=== PATIENT | female | born 1960 ===

== ENCOUNTER 2017-05-03 05:14 | Inpatient (IN) | payer OTHER ==
[2017-05-03] VITALS (16 sets, daily range): BP systolic 116–161; BP diastolic 59–100
[~2017-05-03] VITALS: Ht 154.9 cm; Wt 59.4 kg
[2017-05-03] MEDS ORDERED: ATORVASTATIN CA20 MG ORAL (06:09)
[2017-05-03] MEDS ORDERED: LISINOPRIL-HCT1 EACH ORAL (06:09)
[2017-05-03] MEDS ORDERED: TRAMADOL HCL50 MG ORAL (06:09)
[2017-05-03] MEDS ORDERED: MORPHINE IR15 MG ORAL (06:09)
[2017-05-03] MEDS ORDERED: OXYCODONE HCL20 M1 ORAL (06:10)
[2017-05-03] MEDS ORDERED: OMEPRAZOLE20 M2 ORAL (06:11)
[2017-05-03] MEDS ORDERED: LR 1000ml 1,000 ML IVLG SCH (06:21)
[2017-05-03] MEDS ORDERED: fentaNYL 100 mcg/2 mL IV PRN (06:30)
[2017-05-03] MEDS ORDERED: Midazolam 2mg/2ml Inj IVP PRN (06:30)
[2017-05-03] MEDS ORDERED: Ketorolac 30mg Inj IV PRN ×2 (06:30)
[2017-05-03] MEDS ORDERED: Acetaminophen (Non formulary) 100 ML IV ONE (06:30)
[2017-05-03] MEDS ORDERED: Norco 5mg/325mg tab ORAL PRN (06:30)
[2017-05-03] MEDS ORDERED: DiphenhydrAMINE 50mg/ml Inj IVP PRN (06:30)
[2017-05-03] MEDS ORDERED: oxyCODONE HCL/Acetaminophen 5/325mg ORAL PRN (06:30)
[2017-05-03] MEDS ORDERED: HYDROcodone/Acetamin 7.5/325 tab ORAL PRN (06:30)
[2017-05-03] MEDS ORDERED: LORazepam Inj 2mg/ml 1ml IV PRN (06:30)
[2017-05-03] MEDS ORDERED: Atropine Inj 1mg/10ml Syr IV PRN (06:30)
[2017-05-03] MEDS ORDERED: Labetalol 5mg/ml 20ml vial IV PRN (06:30)
[2017-05-03] MEDS ORDERED: Thrombin 5000 units TOPIC ONE (06:32)
[2017-05-03] MEDS ORDERED: Lidocaine 1% 10mg/ml/EPI 0.01mg/ml 50ml INJ ONE (06:33)
[2017-05-03] MEDS ORDERED: Lidocaine 1% Plain 30 ml INJ ONE ×2 (06:33→07:00)
[2017-05-03] MEDS ORDERED: Surgicel 4in x 8in TOPIC ONE (06:33)
[2017-05-03] MEDS ORDERED: Vancomycin 1gm inj IVPB ONE (06:34)
[2017-05-03] MEDS ORDERED: Bacitracin 50000 Units Vial ONE (06:34)
[2017-05-03] MEDS ORDERED: Ropivacaine 5mg/ml Vial 30ml INJ ONE (06:34)
[2017-05-03] MEDS ORDERED: Dexamethasone 20mg/5ml ONE (06:37)
[2017-05-03] MEDS ORDERED: Albuterol ud Inhalation HHN PRN (06:45)
[2017-05-03] MEDS ORDERED: Dexamethasone 20mg/5ml IVP ONE (06:45)
[2017-05-03] MEDS ORDERED: ceFAZolin 1gm/50ml Premix 50 ML IV ONE (06:45)
[2017-05-03] MEDS ORDERED: Chloraseptic Spray 20mL Bottle ORAL PRN (06:45)
--- NOTE | 2017-05-03 06:57 | Anethesia Preoperative Eval ---
Anesthesia Pre-op PMH/ROS General Date of Evaluation: May 03, 2017 Time of Evaluation: 07:11 Anesthesiologist: Satinder ASA Score: ASA 3 Mallampati Score Class I : Soft palate, uvula, fauces, pillars visible Class II: Soft palate, uvula, fauces visible Class III: Soft palate, base of uvula visible Class IV: Only hard plate visible Mallampati Classification: Class II Surgeon: Demario Diagnosis: Back Pain Surgical Procedure: PSF L5-S1 Pedicle Screw Anesthesia History: none Family History: no anesthesia problems Allergies: Coded Allergies: No Known Allergies (Unverified , 05/03/17) Medications: see eMAR Past Medical History Cardiovascular: Reports: HTN, other - HL Pulmonary: Reports: asthma Gastrointestinal/Genitourinary: Reports: GERD Neurologic/Psychiatric: Reports: depression/anxiety Anesthesia Pre-op Phys. Exam Physician Exam Last Vital Signs Date Time Temp Pulse Resp B/P (MAP) Pulse Ox O2 Delivery O2 Flow Rate FiO2 05/03/17 06:29 98.1 55 20 116/59 96 Room Air 98.1 Constitutional: NAD Neurologic: CN 2-12 intact Cardiovascular: RRR Respiratory: CTA Gastrointestinal: S/NT/ND Airway Exam Mallampati Score: Class II MO: full ROM: limited Teeth: missing Anesthesia Pre-op A/P Risk Assessment & Plan Assessment: ASA 3 Plan: GA, BIS, GlideScope Go Status Change Before Surgery: No Pre-Antibiotics Dru Grams Ancef IV Given Within 1 Hr of Incision: Yes Time Given: 07:32 Jessee Rajan MD May 03, 2017 06:57
--- NOTE | 2017-05-03 06:58 | Immediate Post-Op Evaluation ---
Immediate Post-Op Evalulation Immediate Post-Op Evalulation Procedure: PSF L5-S1 Pedicle Screw Date of Evaluation: May 03, 2017 Time of Evaluation: 10:30 IV Fluids: 1000 LR Blood Products: 0 Estimated Blood Loss: 25 Urinary Output: 0 Blood Pressure Systolic: 155 Blood Pressure Diastolic: 103 Pulse Rate: 77 Respiratory Rate: 16 O2 Sat by Pulse Oximetry: 100 Temperature (Fahrenheit): 97.3 Pain Score (1-10): 3 Nausea: No Vomiting: No Complications 0 Patient Status: awake, reacts, patent, extubated, none Hydration Status: adequate Dru Grams Ancef IV Given Within 1 Hr of Incision: Yes Time Given: 07:32 Jessee Rajan MD May 03, 2017 06:58
[2017-05-03] MEDS ORDERED: fentaNYL 100 mcg/2 mL IV ONE (07:00)
[2017-05-03] MEDS ORDERED: LR 1000ml ONE (07:00)
[2017-05-03] MEDS ORDERED: Zemuron 50mg/5ml Inj IV ONE (07:00)
[2017-05-03] MEDS ORDERED: Glycopyrrolate 0.2mg/ml 1ml Vial ONE (07:00)
[2017-05-03] MEDS ORDERED: Lidocaine 1% MPF 10mg/ml 5ml ONE (07:00)
[2017-05-03] MEDS ORDERED: Propofol 1,000mg/ 100ml btl IV ONE (07:00)
[2017-05-03] MEDS ORDERED: Neostigmine 1mg/ml 10ml Inj ONE (07:00)
[2017-05-03] MEDS ORDERED: Sterile Water Irrig 1000ml IRRIG ONE (07:00)
[2017-05-03] MEDS ORDERED: Dexamethasone 4mg/ml vial ONE (07:00)
[2017-05-03] MEDS ORDERED: Sodium Chloride 10ml vial INJ ONE (07:00)
[2017-05-03] MEDS ORDERED: NS Irrig 1000ml ONE (07:00)
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
--- NOTE | 2017-05-03 10:01 | Brief Operative Note ---
Immediate Post Operative Note Operative Note Pre-op Diagnosis: Post Trauma severe backpain. Failed all conservative trials / modalities Procedure: Pedicle Screw L5-S1 SSEP High Power dissection Local Xray Post-op Diagnosis: same as pre-op Findings: consistent w/pre-op dx studies Surgeon: Demario Ph.D., M.D. Nurse First Aid: Sole RIVERA Anesthesiologist: Satinder Anesthesia: general Specimen: none Complications: none Condition: stable Fluids: anesthesia Estimated Blood Loss: minimal Drains: none Implant(s) used?: Yes LARRY COLUNGA May 03, 2017 10:00
[2017-05-03] MEDS ORDERED: Naloxone 0.4mg/ml Inj IVP PRN (10:15)
[2017-05-03] MEDS: Hydromorphone 0.5mg/0.5ml inj IVP PRN ×3 (10:31→11:14)
--- NOTE | 2017-05-03 12:05 | Diagnostic Imaging Report ---
Indication: Left lower extremity pain, intraoperative images Technique: Digital intraoperative images Comparison: none Findings: Intraoperative images demonstrate initially a surgical tool projected posterior to what is presumably the L5 vertebral body. Subsequent images document posterior surgical fusion of L5 and S1 Impression: Intraoperative imaging, as described
[2017-05-03] MEDS: D5 1/2NS 1,000 ML IV SCH ×2 (12:50→21:25)
[2017-05-03] MEDS ORDERED: Dronabinol 2.5mg Cap ORAL SCH ×2 (13:00→20:00)
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
[2017-05-03] MEDS: ceFAZolin sod 1 GM in D5W 55 ML IV SCH ×2 (15:59→22:29)
[2017-05-03] MEDS: oxyCODONE 5mg IR tab ORAL PRN (17:40)
--- NOTE | 2017-05-03 17:47 | Operative Note - Dictated ---
DATE OF OPERATION: 05/03/2017 SURGEON: Tarun Hanks M.D. EMPLOYMENT RECRUITER: MIGUEL Oscar. ANESTHESIA: Dr. Rajan, general with intubation. ESTIMATED BLOOD LOSS: Minimal. DRAINS: None. COMPLICATIONS: None. POSTOPERATIVE CONDITION: Good/stable. ADMITTING/PREOPERATIVE DIAGNOSIS: Severe posttraumatic back pain. POSTOPERATIVE DIAGNOSIS: Severe posttraumatic back pain. OPERATIVE PROCEDURE: Trial pedicle screw instrumentation, L5-S1, with interconnecting rods-immobilization. Local anesthetic applied by surgeon. Intraoperative fluoroscopy interpreted by surgeon. High-powered magnification dissection. DESCRIPTION OF PROCEDURE: The patient was brought to the operating room and in the supine position, general anesthesia with intubation was induced. IV antibiotics and IV Decadron were administered 30 minutes prior to incision time. Lumbodorsal spine was sterilely prepped. Spinal needle was placed percutaneously under sterile conditions demonstrating the correct level for incision placement. Needle markers removed. Back re-sterilely prepped and draped free in usual sterile fashion. A longitudinal incision was sharply carried through dermis and epidermis over the involved intervals. Electrocautery dissection was carried through the subcutaneous tissue to the midline lumbodorsal fascia with subperiosteal dissection in the right, left, and midline over the respective intervals. Pedicle screw instrumentation was undertaken at bilateral S1, bilateral L5 with sequential probing of the pedicle, tapping, determination of physical integrity of the wall, ball tip probe, screw insertion followed with electrical screw stimulation negative at all levels. No EMG activities at any time during screw insertion. Interconnecting rods locked into position, torqued appropriately. Wound irrigated with antibiotic-containing saline. A 1 g of vancomycin powder applied deep to the lumbodorsal fascia. Lumbodorsal fascia reapproximated with Vicryl suture material. Subcutaneous tissue reapproximated in multiple layers. Dermis and epidermis reapproximated with a subcuticular closure followed with transverse surgical strips and Dermabond. After the Dermabond was dry, sterile bandage was applied and maintained in place with tape. Prior to Dermabond and surgical strips application, local anesthetic 1% lidocaine with epinephrine was instilled in bilateral lateral aspects of the incision as local anesthetic. The patient was awakened, extubated in the operating room, and transported to postoperative recovery in good stable condition. Tarun Hanks M.D. DR: ROB JOB#: [id number] CC:
[2017-05-03] MEDS: MS Contin 15mg tab ORAL SCH ×3 (18:00→22:14)
[2017-05-03] MEDS: Docusate 100mg cap ORAL SCH (18:17)
[2017-05-03] MEDS: Dronabinol 2.5mg Cap ORAL SCH (22:29)
[2017-05-04 01:00] VITALS: BP 103/90
[2017-05-04 04:00] VITALS: BP 112/71
[2017-05-04] MEDS: D5 1/2NS 1,000 ML IV SCH (04:34)
[2017-05-04] MEDS: ceFAZolin sod 1 GM in D5W 55 ML IV SCH (06:26)
[2017-05-04] MEDS: Dronabinol 2.5mg Cap ORAL SCH (06:26)
--- NOTE | 2017-05-04 06:45 | 48 Hour Post Anesthesia Eval ---
Post Anesthesia Evaluation Procedure: PSF L5-S1 Pedicle Screw Date of Evaluation: May 04, 2017 Time of Evaluation: 06:30 Blood Pressure Systolic: 112 0: 71 Pulse Rate: 68 Respiratory Rate: 18 Temperature (Fahrenheit): 97.9 O2 Sat by Pulse Oximetry: 94 Airway: patent Nausea: No Vomiting: No Pain Intensity: 2 Hydration Status: adequate Cardiopulmonary Status: at baseline Mental Status/LOC: patient returned to baseline Post-Anesthesia Complications: 0 Follow-up care needed: N/A - further care as per primary team ANIKA DUARTE M.D. May 04, 2017 06:45
[2017-05-04 08:00] VITALS: BP 119/75
--- NOTE | 2017-05-04 08:30 | Progress Note ---
DATE: 05/04/2017 ACUTE PAIN MANAGEMENT PHYSICIAN PROGRESS NOTE MEDICATIONS: Medication administration record reviewed. Medications include Colace, Protonix, MS Contin, Ancef, Marinol. P.r.n. medications include Fioricet, Proventil, Benadryl, Soma, Catapres, Chloraseptic spray, Dilaudid, Zofran, oxycodone, Mylanta, Phenergan, Narcan. LABORATORY STUDIES: No interval laboratory studies. VITAL SIGNS: Within normal limits. Afebrile, pulse 68, respirations 18, pulse oximetry 94%. I spent over 60 minutes in consultation today. I saw the patient at the bedside after discussion with the nurse, MOISES Estrada. I discussed the case with the day nurse RN, Aurelia. I discussed the case with the surgeon, Dr. Tarun Hanks in-detail. The patient has been complaining of severe postoperative pain. After receiving multiple bolus doses of Dilaudid and Marinol yesterday, she still stated that her pain was inadequately controlled. I went ahead and spoke with the hospital pharmacist, Catrina, and added MS Contin 30 mg q.12 hours to help with baseline analgesia. The additional dosing has been more effective. I saw the patient this morning. She has been able to ambulate in and out of bed to the restroom. She is tolerating food without nausea. She shows no signs of oversedation. I have instructed the nurse to continue with serially dosing of narcotics to help with her pain control. The patient has an ample supply of extended-release morphine, and oxycodone as well as her medical marijuana at home, which she will continue. The patient's daughter will picker tender helper the patient later this morning and drive her home. The patient will follow up with Dr. Hanks in the outpatient surgical clinic in approximately 1 week. The patient is afebrile and I encouraged aggressive use of incentive spirometer to help with pulmonary toilet. I did encourage the patient to aggressively ambulate for DVT prophylaxis as well as to aid her surgical recovery. The patient understood these instructions and agreed to comply. I agree with discharge trial home at this time later today. The wound dressing appears clean and dry. Giovany Fernie, M.D. DR: Kandis JOB#: [id number] CC:
[2017-05-04] MEDS: MS Contin 15mg tab ORAL SCH (09:09)
[2017-05-04] MEDS: Docusate 100mg cap ORAL SCH (09:09)
[2017-05-04] MEDS: oxyCODONE 5mg IR tab ORAL PRN (10:08)
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
== END 2017-05-04 11:20 | disposition home or self-care (01) | DRG 516 ==
LOC: SDSOVERFLO 05:14 → 3E 11:52
PROC: 0SH304Z Insertion of Internal Fixation Device into Lumbosacral Joint, Open Approach (ICD-10-PCS; principal; 2017-05-03 07:00)
DX: M51.27 Other intervertebral disc displacement, lumbosacral region (principal); F11.20 Opioid dependence, uncomplicated; I10 Essential (primary) hypertension; E78.5 Hyperlipidemia, unspecified; J45.909 Unspecified asthma, uncomplicated; G89.18 Other acute postprocedural pain
CPT/HCPCS: 36415; 72020; 76001; 86850; 86900; 86901; 87081; 94003; 94150; J2250; J2405; J2710

== ENCOUNTER 2017-06-27 05:37 | Inpatient (IN) | payer OTHER ==
[~2017-06-27] VITALS: Ht 154.9 cm; Wt 59.4 kg
[2017-06-27] VITALS (16 sets, daily range): BP systolic 107–163; BP diastolic 63–107
[~2017-06-27 05:37] MED LIST: ATORVASTATIN CA20 MG ORAL; LISINOPRIL-HCT1 EACH ORAL; MORPHINE IR15 MG ORAL; OMEPRAZOLE20 M2 ORAL; OXYCODONE HCL20 M1 ORAL; TRAMADOL HCL50 MG ORAL
[2017-06-27] MEDS ORDERED: Labetalol 5mg/ml 20ml vial IV PRN ×2 (06:00→14:15)
[2017-06-27] MEDS ORDERED: Ketorolac 30mg Inj IV PRN ×4 (06:00→14:00)
[2017-06-27] MEDS ORDERED: LR 1000ml 1,000 ML IVLG SCH (06:00)
[2017-06-27] MEDS ORDERED: LORazepam Inj 2mg/ml 1ml IV PRN (06:00)
[2017-06-27] MEDS ORDERED: DiphenhydrAMINE 50mg/ml Inj IVP PRN ×2 (06:00→14:15)
[2017-06-27] MEDS ORDERED: oxyCODONE HCL/Acetaminophen 5/325mg ORAL PRN ×2 (06:00→14:15)
[2017-06-27] MEDS ORDERED: Norco 5mg/325mg tab ORAL PRN ×2 (06:00→14:00)
[2017-06-27] MEDS ORDERED: HYDROcodone/Acetamin 7.5/325 tab ORAL PRN ×2 (06:00→14:00)
[2017-06-27] MEDS ORDERED: Midazolam 2mg/2ml Inj IVP PRN ×2 (06:00→14:00)
[2017-06-27] MEDS ORDERED: Atropine Inj 1mg/10ml Syr IV PRN ×2 (06:00→14:15)
[2017-06-27] MEDS ORDERED: fentaNYL 100 mcg/2 mL IV PRN ×2 (06:00→14:00)
--- NOTE | 2017-06-27 06:02 | Immediate Post-Op Evaluation ---
Immediate Post-Op Evalulation Immediate Post-Op Evalulation Procedure: Post Screw Removal L5-S1, ALIF, PSF Date of Evaluation: Jun 27, 2017 Time of Evaluation: 13:58 IV Fluids: 1300 LR Blood Products: 0 Estimated Blood Loss: 100 Urinary Output: 200 Blood Pressure Systolic: 156 Blood Pressure Diastolic: 97 Pulse Rate: 67 Respiratory Rate: 16 O2 Sat by Pulse Oximetry: 100 Temperature (Fahrenheit): 97.6 Pain Score (1-10): 3 Nausea: No Vomiting: No Complications 0 Patient Status: awake, reacts, patent, extubated, none Hydration Status: adequate Dru Grams Ancef IV Given Within 1 Hr of Incision: Yes Time Given: 07:38 Jessee Rajan MD Jun 27, 2017 06:02
[2017-06-27] MEDS ORDERED: Zemuron 50mg/5ml Inj IV ONE (06:10)
[2017-06-27] MEDS ORDERED: fentaNYL 100 mcg/2 mL IV ONE ×3 (06:14→11:28)
[2017-06-27] MEDS ORDERED: Midazolam 2mg/2ml Inj ONE (06:24)
[2017-06-27] MEDS ORDERED: Vancomycin 1gm inj IVPB ONE ×2 (06:29→09:28)
[2017-06-27] MEDS ORDERED: Heparin 5000 units/ml inj ONE (06:30)
[2017-06-27] MEDS ORDERED: Thrombin 5000 units TOPIC ONE ×2 (06:30→09:29)
[2017-06-27] MEDS ORDERED: Lidocaine 1% 10mg/ml/Epi 0.005mg/ml 30ml vial INJ ONE (06:31)
[2017-06-27] MEDS ORDERED: Bacitracin 50000 Units Vial ONE ×2 (06:31→09:29)
[2017-06-27] MEDS ORDERED: Ropivacaine 5mg/ml Vial 30ml INJ ONE (06:31)
[2017-06-27] MEDS ORDERED: Lidocaine 1% MPF 10mg/ml 5ml ONE (06:33)
[2017-06-27] MEDS ORDERED: Sodium Chloride 10ml vial INJ ONE ×3 (06:52→11:20)
[2017-06-27] MEDS ORDERED: Dexamethasone 20mg/5ml IVP ONE (07:00)
[2017-06-27] MEDS ORDERED: ceFAZolin sod 1 GM in D5W 55 ML IVPB ONE (07:00)
[2017-06-27] MEDS ORDERED: Acetaminophen (Non formulary) 100 ML IV ONE (07:00)
--- NOTE | 2017-06-27 07:12 | Pre-Procedure Note/Attestation ---
Pre-Procedure Note/Attestation Complete Prior to Procedure Planned Procedure: not applicable Procedure Narrative: Posterior removal rods L5, S1 Anterior L5-S1 interbody reconstruction, correction deformity, fusion, internal fixation Posterior possible removal and replacement pedicle scows Posterior L5-S1 fusion Indications for Procedure Pre-Operative Diagnosis: Post trauma back pain Attestation I attest that I discussed the nature of the procedure; its benefits; risks and complications; and alternatives (and the risks and benefits of such alternatives ), prior to the procedure, with the patient (or the patient's legal medical center representative). I attest that, if there was a reasonable possibility of needing a blood transfusion, the patient (or the patient's legal medical center representative) was given the [place] [facility] of Health Services standardized written summary, pursuant to the Aly [place] Blood Safety Act ([place] Health and Safety Code # 1645, as amended). I attest that I re-evaluated the patient just prior to the surgery and that there has been no change in the patient's H&P, except as documented below: LARRY COLUNGA Jun 27, 2017 07:12
--- NOTE | 2017-06-27 07:43 | Anethesia Preoperative Eval ---
Anesthesia Pre-op PMH/ROS General Date of Evaluation: Jun 27, 2017 Time of Evaluation: 07:06 Anesthesiologist: Emma ASA Score: ASA 3 Mallampati Score Class I : Soft palate, uvula, fauces, pillars visible Class II: Soft palate, uvula, fauces visible Class III: Soft palate, base of uvula visible Class IV: Only hard plate visible Mallampati Classification: Class II Surgeon: Demario Diagnosis: Back Pain Surgical Procedure: Post Screw Removal L5-S1, ALIF, PSF Anesthesia History: none Family History: no anesthesia problems Allergies: Coded Allergies: No Known Allergies (Unverified , 06/27/17) Medications: see eMAR Past Medical History Cardiovascular: Reports: HTN, other - HL Pulmonary: Reports: asthma Gastrointestinal/Genitourinary: Reports: GERD, other - Smoker Neurologic/Psychiatric: Reports: depression/anxiety PMH Narrative: Smoker PSxH Narrative: ALIF L5-S1. PSF Anesthesia Pre-op Phys. Exam Physician Exam Last Vital Signs Date Time Temp Pulse Resp B/P (MAP) Pulse Ox O2 Delivery O2 Flow Rate FiO2 06/27/17 06:14 97.7 60 16 107/63 99 Room Air 97.7 Constitutional: NAD Neurologic: CN 2-12 intact Cardiovascular: RRR Respiratory: CTA Gastrointestinal: S/NT/ND Airway Exam Mallampati Classification ASA 3 Mallampati Score: Class II MO: full ROM: full Teeth: missing Anesthesia Pre-op A/P Risk Assessment & Plan Assessment: ASA 3 Plan: GA, BIS, GlideScope Go Status Change Before Surgery: No Pre-Antibiotics Dru Grams Ancef IV Given Within 1 Hr of Incision: Yes Time Given: 07:38 Jessee Rajan MD Jun 27, 2017 07:43
[2017-06-27] MEDS ORDERED: Lidocaine 1% Plain 30 ml INJ ONE ×2 (07:59→09:23)
[2017-06-27] MEDS ORDERED: Ketamine 500mg Inj ONE (11:19)
[2017-06-27] MEDS ORDERED: Propofol 200mg/20ml IV ONE (11:37)
--- NOTE | 2017-06-27 13:53 | Brief Operative Note ---
Immediate Post Operative Note Operative Note Pre-op Diagnosis: Post trauma back pain Procedure: Posterior Pedicle Screw dariusz removal bilateral. Operation through scar tissue. Anterior: L5-S1: correction deformity, interbody reconstruction / fusion / BMP/ internal fixation. Posterior Pedicle Scrw removal, replacement, facet fusion, dariusz placement Local High Power Xray SSEP Post-op Diagnosis: same Post-op Diagnosis: same as pre-op Findings: consistent w/pre-op dx studies Surgeon: Demario. Additional Surgeons: Jaguar Khoury Anesthesiologist: Satinder FRANCISCO Anesthesia: general Specimen: yes Complications: none Condition: stable Fluids: anesthesia Estimated Blood Loss: minimal Drains: none Implant(s) used?: Yes LARRY COLUNGA Jun 27, 2017 13:53
[2017-06-27] MEDS: LORazepam Inj 2mg/ml 1ml IV PRN ×2 (14:33→15:34)
[2017-06-27] MEDS ORDERED: Dronabinol 2.5mg Cap ORAL SCH (15:15)
[2017-06-27] MEDS ORDERED: Chloraseptic Spray 20mL Bottle ORAL ONE (15:32)
[2017-06-27] MEDS ORDERED: PCA Morphine 1mg/ml 30 ML IV PRN (15:45)
[2017-06-27] MEDS ORDERED: Chloraseptic Spray 20mL Bottle ORAL PRN (16:00)
[2017-06-27] MEDS ORDERED: PCA Morphine 1mg/ml 30 ML IV ONE (16:00)
[2017-06-27] MEDS ORDERED: Rate Change PCA 1 Each MISC PRN (16:00)
[2017-06-27] MEDS: PCA Morphine 30mg/30ml IV SCH (16:06)
[2017-06-27] MEDS ORDERED: D5 1/2NS 1,000 ML IV SCH (17:00)
[2017-06-27] MEDS ORDERED: PCA Education Pamphlet MISC ONE (17:00)
[2017-06-27] MEDS: ceFAZolin sod 1 GM in D5W 110 ML IV SCH (17:33)
[2017-06-27] MEDS: Albuterol/Ipratropium 3ml neb HHN SCH (19:00)
[2017-06-27] MEDS: MS Contin 15mg tab ORAL SCH (19:00)
[2017-06-27] MEDS: PCA shift volume MISC SCH (19:00)
--- NOTE | 2017-06-27 20:50 | Cardiology Progress Note ---
Assessment/Plan Assessment/Plan tachy leiklyrelated to pain ekg renzo have ivf bolus cbc now and in am venous duplex [id number] Objective Last 24 Hour Vital Signs Date Time Temp Pulse Resp B/P (MAP) Pulse Ox O2 Delivery O2 Flow Rate FiO2 06/27/17 20:10 97.4 06/27/17 20:10 97.4 06/27/17 20:06 Nasal Cannula 2.0 28 06/27/17 20:05 Nasal Cannula 06/27/17 20:05 99 Nasal Cannula 2.0 28 06/27/17 20:04 134 24 99 Nasal Cannula 2.0 28 06/27/17 20:03 134 24 Nasal Cannula 2.0 28 06/27/17 19:00 97.4 06/27/17 17:52 18 06/27/17 17:30 97.4 97 18 140/88 100 Nasal Cannula 3.0 97.4 06/27/17 17:22 18 06/27/17 16:52 18 06/27/17 16:37 18 06/27/17 16:36 97.8 06/27/17 16:25 97.4 92 18 134/88 100 Nasal Cannula 3.0 97.4 06/27/17 16:22 16 06/27/17 16:15 97.8 89 15 148/83 98 Nasal Cannula 3.0 97.8 06/27/17 16:07 18 06/27/17 16:06 97.7 06/27/17 16:00 85 16 139/83 100 Nasal Cannula 3.0 06/27/17 15:45 86 17 142/91 99 Nasal Cannula 3.0 06/27/17 15:30 88 20 136/86 100 Nasal Cannula 3.0 06/27/17 15:21 97.7 06/27/17 15:21 97.7 06/27/17 15:15 71 17 137/95 99 Nasal Cannula 3.0 06/27/17 15:06 97.3 06/27/17 15:00 77 18 152/99 96 Nasal Cannula 3.0 06/27/17 14:51 97.5 06/27/17 14:45 74 20 155/95 100 Nasal Cannula 3.0 06/27/17 14:37 158/107 06/27/17 14:30 78 15 155/98 98 Nasal Cannula 3.0 06/27/17 14:15 81 21 159/107 100 Simple Mask 6.0 06/27/17 14:00 82 18 154/100 100 Simple Mask 6.0 06/27/17 13:50 97.2 88 20 163/96 100 Simple Mask 6.0 97.2 06/27/17 13:47 97.7 60 16 156/97 100 Simple Mask 97.7 06/27/17 13:46 207.7 67 16 100 06/27/17 06:14 97.7 60 16 107/63 99 Room Air 97.7 Intake and Output 06/26/17 06/27/17 19:00 07:00 # Voids 1 JENNIFER DANIEL Jun 27, 2017 20:50
[2017-06-27] MEDS ORDERED: Sodium Chloride 500ML 550 ML IV ONE (21:00)
--- NOTE | 2017-06-27 21:15 | Operative Note - Dictated ---
DATE OF OPERATION: 06/27/2017 PRIMARY SURGEON: Tarun Hanks, Ph. D., M.D. ADDITIONAL SURGEON: Anterior, Dr. Montesinos, Vascular Surgery. MATERIAL HANDLER FLOORPERSON: Posterior, MIGUEL Cordova. ANESTHESIA: Dr. Rajan, general with intubation. ESTIMATED BLOOD LOSS: Less than 50 mL. COMPLICATIONS: None. POSTOPERATIVE CONDITION: Good/stable. PREOPERATIVE DIAGNOSIS: Posttraumatic back pain. POSTOPERATIVE DIAGNOSIS: Posttraumatic back pain. OPERATIVE PROCEDURE: Posterior operation through scar tissue removed interconnecting rods bilateral pedicles screws. Anterior interbody reconstruction fusion L5-S1 with correction deformity, placement bone morphogenic protein, internal fixation. Posterior, removal of pedicle screw instrumentation with implantation, new pedicle screw instrumentation, change in dimensions, interconnecting rods with fusion, bilateral facet fusion L5-S1. Local anesthetic applied by surgeon. Intraoperative fluoroscopy anterior, posterior, interpreted by surgeon, posterior vancomycin powder application. PROCEDURE IN DETAIL: The patient was brought to the operating room and in supine position general anesthesia intubation was induced. IV antibiotics, IV Decadron were administered 30 minutes prior to incision time. The patient was placed in the prone position. Lumbodorsal spine was sterilely prepped and draped free in usual sterile fashion. Utilizing the prior incision, sharp dissection was carried through scar tissue, dermis and epidermis. Electrocautery dissection was carried through the subcutaneous tissue to the level lumbodorsal fascia was incised right and left of midline. Dissection carried to the pedicle screw instrumentation bilaterally. Interconnecting rods tight. Removed. The wound reapproximated under sterile conditions with Vicryl suture material. Sterile bandage applied and maintained in place with . The patient carefully turned position in the prone position. All new instrumentation utilized. New operating table. Anterior exposure, please see separate dictation by Dr. Montesinos. L5-S1 interval was confirmed with AP and lateral radiographs with needle placed into the disc space. Severe collapse with spondylolisthesis noted prior to pedicle screw instrumentation/dariusz removal. Reduced with supine positioning. Correction deformity to lordosis. Interpositional grafting with lordotic AERO-L instrumentation internal fixation. Placement of bone morphogenic protein within the AERO-L for fusion. Alignment excellent. All dissection anterior and posterior under high-power magnification. Wound irrigated with antibiotic-containing saline. Closure, Dr. Montesinos. Please see separate dictation. Dr. Hanks assist. The patient was carefully turned from the supine to the prone position onto a new operating table. All new instrumentation into the room. All new sterile set up. The posterior bandage was removed in a sterile fashion. Posterior lumbar spine sterilely prepped and draped free in usual sterile fashion. Vicryl suture material removed. Wound irrigated with antibiotic-containing saline. Pedicle screw instrumentation removed in a sequential fashion with replacement with new pedicle screws increased by 1 millimeter in diameter. Excellent purchase. The patient is stable. SSEP monitoring stable at all times. Interconnecting rods locked into position with new rods utilized with appropriate dimensions. Rods placed after bilateral facet fusions performed. Wound irrigated with antibiotic-containing saline, vancomycin. FloSeal applied with minimal bleeding. This was followed with 1 gram of vancomycin powder deep to the lumbodorsal fascia. Lumbodorsal fascia reapproximated with Vicryl suture material. Subcutaneous tissue reapproximated. Running subcuticular closure. Transverse surgical strips followed with Dermabond. Once the Dermabond was solid, sterile bandage applied and maintained in place with tape. The patient was carefully turned from the prone to the supine position onto the transport bed where she was awakened and extubated in the operating room, and transported to postoperative recovery in good stable condition. Tarun Hanks M.D. DR: ROB JOB#: [id number] CC:
[2017-06-27] MEDS: Dronabinol 2.5mg Cap ORAL SCH (21:56)
[2017-06-27 22:04] LABS: BASOPHILS % (AUTO) 0.3 % (0.0-2.0); HEMATOCRIT 30.4 % (37.0-47.0); HEMOGLOBIN 10.5 G/DL (12.0-16.0); LYMPHOCYTES % (AUTO) 11.2 % (20.0-45.0); MEAN CORPUSCULAR VOLUME 87 FL (80-99); MONOCYTES % (AUTO) 7.1 % (1.0-10.0); NEUTROPHILS % (AUTO) 81.4 % (45.0-75.0); PLATELET COUNT 353 K/UL (150-450); RED BLOOD COUNT 3.49 M/UL (4.20-5.40); WHITE BLOOD COUNT 12.8 K/UL (4.8-10.8)
[2017-06-27 22:11] LABS: ANION GAP 5 mmol/L (5-15); BLOOD UREA NITROGEN 11 mg/dL (7-18); CARBON DIOXIDE 30 MMOL/L (21-32); CHLORIDE 102 MMOL/L (98-107); CREATININE 0.9 MG/DL (0.55-1.30); POTASSIUM 3.8 MMOL/L (3.5-5.1); SODIUM 136 MMOL/L (136-145)
[2017-06-27 22:16] LABS: ALANINE AMINOTRANSFERASE 18 U/L (12-78); ALBUMIN 2.9 G/DL (3.4-5.0); ALKALINE PHOSPHATASE 75 U/L (46-116); ASPARTATE AMINO TRANSFERASE 19 U/L (15-37); BILIRUBIN,TOTAL 0.5 MG/DL (0.2-1.0)
--- NOTE | 2017-06-27 22:30 | Operative Note - Dictated ---
DATE OF OPERATION: 06/27/2017 SURGEON: Jamal Montesinos M.D., Vascular Surgeon. SPINE SURGEON: Tarun Hanks M.D. PREOPERATIVE DIAGNOSIS: Degenerative disc disease. POSTOPERATIVE DIAGNOSIS: Degenerative disc disease. PROCEDURE PERFORMED: Anterior retroperitoneal exposure, L5-S1, vertebral interspace. INDICATIONS: The patient is a very pleasant woman who is seen in my office prior to surgery. She has a prior history of a section via transverse incision. No prior history of deep venous thrombosis or bleeding complications were described. She was made aware of the risks of surgery including vascular injury, possible need for blood transfusion, and deep venous thrombosis. DESCRIPTION OF FINDINGS: Her prior transverse incision was used. A left retroperitoneal approach was used. There was no peritoneal or ureteral violation. There was no vascular injury. Exposure of L5-S1 was obtained below the iliac bifurcation and confirmed using fluoroscopy. On completion, the peritoneum and ureter intact. The iliac vessels were intact. BLOOD LOSS: Less than 50 mL. COMPLICATIONS: None. DESCRIPTION OF PROCEDURE: The patient was taken to the operating room. General anesthesia was used. Intravenous antibiotics were given. The patient's abdomen was prepped and draped. Appropriate time-out procedures were taken. A transverse incision was made just above the pubic symphysis. Flaps were raised superiorly. The anterior abdominal fascia was incised longitudinally in the midline. A plane was identified posterior to the left rectus abdominis and developed posterolaterally towards the patient's left. The retroperitoneal space was bluntly entered below the arcuate line. The peritoneum and ureter were mobilized together towards the patient's right exposing the left common iliac artery and vein. Dissection was carried out on the undersurface of the left common iliac vein. The middle sacral artery and vein were ligated using bipolar electrocautery and divided, and this allowed us to expose the anterior surface of L5-S1. The Omni retractor was set in place. Fluoroscopy was used to confirm the appropriate level. Then, instrumentation was performed at L5-S1 and dictated separately. On completion, the peritoneum and ureter were intact. Iliac vessels were intact. The anterior fascia was closed using #1 PDS in a running fashion, and the skin and subcutaneous tissue were closed with 3-0 Vicryl and 4-0 Monocryl in running subcuticular closure technique. Jamal Montesinos M.D. DR: ASHLYN JOB#: [id number] CC: Tarun Hanks M.D.
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
[2017-06-27] MEDS: D5 1/2NS 1,000 ML IV SCH ×2 (23:06→23:08)
[2017-06-28] VITALS: BP 130/88
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
[2017-06-28] MEDS: Albuterol/Ipratropium 3ml neb HHN SCH ×3 (00:36→14:56)
[2017-06-28] MEDS: ceFAZolin sod 1 GM in D5W 110 ML IV SCH ×2 (00:37→08:40)
[2017-06-28] MEDS: D5 1/2NS 1,000 ML IV SCH ×4 (03:34→19:29)
[2017-06-28 04:22] VITALS: BP 103/70
[2017-06-28] MEDS: Dronabinol 2.5mg Cap ORAL SCH ×3 (05:44→22:00)
[2017-06-28] MEDS: MS Contin 15mg tab ORAL SCH ×2 (05:45→17:20)
[2017-06-28 06:17] LABS: BASOPHILS % (AUTO) 0.4 % (0.0-2.0); HEMATOCRIT 24.8 % (37.0-47.0); HEMOGLOBIN 8.7 G/DL (12.0-16.0); LYMPHOCYTES % (AUTO) 19.6 % (20.0-45.0); MEAN CORPUSCULAR VOLUME 88 FL (80-99); MONOCYTES % (AUTO) 6.9 % (1.0-10.0); PLATELET COUNT 301 K/UL (150-450); RED BLOOD COUNT 2.81 M/UL (4.20-5.40); RED CELL DISTRIBUTION WIDTH 11.3 % (11.6-14.8); WHITE BLOOD COUNT 12.2 K/UL (4.8-10.8)
[2017-06-28] MEDS: PCA shift volume MISC SCH ×2 (07:00→19:00)
[2017-06-28 08:00] VITALS: BP 103/68
[2017-06-28] MEDS: PCA Morphine 30mg/30ml IV SCH (08:27)
[2017-06-28] MEDS: oxyCODONE 5mg IR tab ORAL PRN ×4 (09:33→20:22)
[2017-06-28 12:00] VITALS: BP 109/91
--- NOTE | 2017-06-28 15:13 | 48 Hour Post Anesthesia Eval ---
Post Anesthesia Evaluation Procedure: Post Screw Removal L5-S1, ALIF, PSF Date of Evaluation: Jun 28, 2017 Time of Evaluation: 15:12 Blood Pressure Systolic: 109 0: 68 Pulse Rate: 72 Respiratory Rate: 20 Temperature (Fahrenheit): 97.6 O2 Sat by Pulse Oximetry: 98 Airway: patent Nausea: No Vomiting: No Pain Intensity: 3 Hydration Status: adequate Cardiopulmonary Status: stable Mental Status/LOC: patient returned to baseline Follow-up Care/Observations: n/a Post-Anesthesia Complications: none Follow-up care needed: N/A GABRIELLA CLEMONS M.D. Jun 28, 2017 15:13
[2017-06-28 16:00] VITALS: BP 91/64
[2017-06-28] MEDS ORDERED: Albuterol/Ipratropium 3ml neb HHN PRN (19:00)
[2017-06-28 20:00] VITALS: BP 113/75
--- NOTE | 2017-06-28 20:37 | Cardiology Progress Note ---
Assessment/Plan Assessment/Plan 1. Tachycardia, probably sinus. 2. Postoperative lumbar spine surgery. 3. History of asthma. 4. Hyperlipidemia history. 5. Hypertension history. 6. hypotension 7. anemia ? dilutional vs others hr has improved she look comfortable not dizzy when stried to walk earlier but had alot fo pain will d/w d baeza repeat hgb now and in am pain mannagement per dr farley Subjective Cardiovascular: Denies: chest pain, lightheadedness Respiratory: Denies: shortness of breath Gastrointestinal/Abdominal: Reports: abdominal pain Genitourinary: Denies: burning Objective Last 24 Hour Vital Signs Date Time Temp Pulse Resp B/P (MAP) Pulse Ox O2 Delivery O2 Flow Rate FiO2 06/28/17 16:00 97.7 115 20 91/64 97 97.7 06/28/17 16:00 18 06/28/17 15:13 207.7 72 20 98 06/28/17 15:06 110 20 99 Room Air 06/28/17 14:56 110 20 92 Room Air 06/28/17 12:00 98.0 107 21 109/91 98 98.0 06/28/17 12:00 18 06/28/17 09:51 Room Air 06/28/17 09:50 97 Room Air 06/28/17 08:27 18 06/28/17 08:05 97.6 06/28/17 08:05 97.6 06/28/17 08:03 Room Air 06/28/17 08:01 Room Air 06/28/17 08:00 18 06/28/17 08:00 97.6 103 20 103/68 96 97.6 06/28/17 07:35 97.4 06/28/17 06:44 97.4 06/28/17 05:45 97.4 06/28/17 04:22 99.0 91 20 103/70 100 Nasal Cannula 3.0 99.0 06/28/17 04:00 18 06/28/17 04:00 91 87 88 06/28/17 03:55 97.4 06/28/17 00:11 97.4 06/28/17 00:00 98.2 100 20 130/88 100 Nasal Cannula 3.0 98.2 06/28/17 00:00 18 General Appearance: alert Neck: supple Cardiovascular: normal rate, tachycardia - mild Respiratory/Chest: lungs clear, normal breath sounds Abdomen: hypoactive bowel sounds, distended Extremities: non-tender, no swelling, other - pneumoatic compression stocking in place Intake and Output 06/27/17 06/28/17 19:00 07:00 Intake Total 627.5 ml 2310 ml Output Total 1025 ml 700 ml Balance -397.5 ml 1610 ml Intake Oral 100 ml IV Total 527.5 ml 2310 ml Output Urine Total 925 ml 700 ml Estimated Blood Loss 100 ml Laboratory Tests Test 06/27/17 21:50 06/28/17 05:15 White Blood Count 12.8 K/UL (4.8-10.8) H 12.2 K/UL (4.8-10.8) H Red Blood Count 3.49 M/UL (4.20-5.40) L 2.81 M/UL (4.20-5.40) L Hemoglobin 10.5 G/DL (12.0-16.0) L 8.7 G/DL (12.0-16.0) L Hematocrit 30.4 % (37.0-47.0) L 24.8 % (37.0-47.0) L Mean Corpuscular Volume 87 FL (80-99) 88 FL (80-99) Mean Corpuscular Hemoglobin 30.0 PG (27.0-31.0) 31.1 PG (27.0-31.0) H Mean Corpuscular Hemoglobin Concent 34.5 G/DL (32.0-36.0) 35.3 G/DL (32.0-36.0) Red Cell Distribution Width 11.0 % (11.6-14.8) L 11.3 % (11.6-14.8) L Platelet Count 353 K/UL (150-450) 301 K/UL (150-450) Mean Platelet Volume 7.2 FL (6.5-10.1) 7.2 FL (6.5-10.1) Neutrophils (%) (Auto) 81.4 % (45.0-75.0) H 73.0 % (45.0-75.0) Lymphocytes (%) (Auto) 11.2 % (20.0-45.0) L 19.6 % (20.0-45.0) L Monocytes (%) (Auto) 7.1 % (1.0-10.0) 6.9 % (1.0-10.0) Eosinophils (%) (Auto) 0.0 % (0.0-3.0) 0.0 % (0.0-3.0) Basophils (%) (Auto) 0.3 % (0.0-2.0) 0.4 % (0.0-2.0) Sodium Level 136 MMOL/L (136-145) Potassium Level 3.8 MMOL/L (3.5-5.1) Chloride Level 102 MMOL/L (98-107) Carbon Dioxide Level 30 MMOL/L (21-32) Anion Gap 5 mmol/L (5-15) Blood Urea Nitrogen 11 mg/dL (7-18) Creatinine 0.9 MG/DL (0.55-1.30) Estimat Glomerular Filtration Rate > 60 mL/min (>60) Glucose Level 137 MG/DL (74-106) H Calcium Level 8.0 MG/DL (8.5-10.1) L Total Bilirubin 0.5 MG/DL (0.2-1.0) Aspartate Amino Transf (AST/SGOT) 19 U/L (15-37) Alanine Aminotransferase (ALT/SGPT) 18 U/L (12-78) Alkaline Phosphatase 75 U/L (46-116) Total Protein 5.7 G/DL (6.4-8.2) L Albumin 2.9 G/DL (3.4-5.0) L Globulin 2.8 g/dL Albumin/Globulin Ratio 1.0 (1.0-2.7) JENNIFER DANIEL Jun 28, 2017 20:37
--- NOTE | 2017-06-28 21:15 | Progress Note ---
DATE: 06/28/2017 ACUTE PAIN MANAGEMENT PHYSICIAN PROGRESS NOTE MEDICATIONS: Medication administration record reviewed. Medications include IV fluids, Protonix, morphine MARINE PILOT, MS Contin, albuterol, Atrovent, Ancef, and Marinol. P.r.n. medications include Mylanta, oxycodone, Zofran, Soma, Benadryl, Dilaudid, Phenergan, Chloraseptic, Narcan, and morphine MARINE PILOT. LABORATORY DATA: Laboratory studies from this morning, June 28, 2017, shows white count 12, hematocrit 25, hemoglobin 9, and platelets 301,000. Last night laboratory studies from June 27, 2017, shows sodium 136, potassium 3.8, chloride 102, bicarbonate 30, BUN 11, creatinine 0.9, glucose 137, calcium 8.0, total bilirubin 0.5, AST 19, ALT 19, alkaline phosphatase 75, total protein 5.7, albumin 2.9. VITAL SIGNS: Afebrile, pulse 103, respirations 18, blood pressure 103/68, and oxygen saturation 96%. I spent over 60 minutes in consultation today. I saw the patient at bedside with the nurse, MOISES E[place]. I discussed the case with the hospital pharmacist, Catrina. The patient has not yet had positive flatus. She is burping and has active bowel sounds. She will continue n.p.o. except for ice chips for now. Once the patient passes positive flatus, she will notify the medical team, so we can consider advancing her diet to clear liquids. The patient is neurologically intact, moving all extremities x4. The patient denies any shortness of breath or chest pain. She has been receiving albuterol nebulizer, which has been helping her breathing. She currently states she is breathing comfortably and has no shortness of breath. The patient has been receiving her scheduled doses of MS Contin and Marinol without any adverse side effects or oversedation. I will continue the MS Contin q.12 hours. I will continue Marinol q.8 hours. I did explain to the patient and the pharmacy to wait for at least 60 minutes between each of the doses, to avoid oversedation. The patient will continue with oxycodone p.r.n.; subcutaneous Dilaudid; and Soma. This analgesic regimen seemed to be effective in combination with MARINE PILOT morphine unit. Incentive spirometer was ordered to encourage good pulmonary toilet. The patient was working with physical therapy as tolerated. We will continue supportive care and monitor the patient for improved ambulation and gastrointestinal function. Giovany Enciso M.D. DR: GIL JOB#: [id number] CC:
--- NOTE | 2017-06-28 21:19 | Cardiology Report ---
APPROVED REPORT EKG Measurement Heart [id number] Poor data quality, interpretation may be adversely affected Sinus tachycardia Nonspecific ST abnormality Abnormal ECG
[2017-06-28 21:25] LABS: HEMATOCRIT 21.2 % (37.0-47.0); HEMOGLOBIN 7.3 G/DL (12.0-16.0); MEAN CORPUSCULAR VOLUME 87 FL (80-99); PLATELET COUNT 225 K/UL (150-450); RED BLOOD COUNT 2.42 M/UL (4.20-5.40); RED CELL DISTRIBUTION WIDTH 11.2 % (11.6-14.8); WHITE BLOOD COUNT 10.9 K/UL (4.8-10.8)
[2017-06-28 21:27] LABS: BASOPHILS % (AUTO) 0.9 % (0.0-2.0); EOSINOPHILS % (AUTO) 0.2 % (0.0-3.0); MONOCYTES % (AUTO) 9.3 % (1.0-10.0); NEUTROPHILS % (AUTO) 67.7 % (45.0-75.0)
[2017-06-29] VITALS: BP 114/72
--- NOTE | 2017-06-29 00:04 | Diagnostic Imaging Report ---
APPROVED REPORT CPT Code: 60400 Present Symptoms Comments: TACHYPNEA R/O DVT BILATERAL: Imaging reveals a patent deep venous system bilaterally. There is no evidence of thrombus within the femoral, popliteal or tibial segments. The greater saphenous veins are also within normal limits. Doppler indicates normal spontaneous flow within these segments.
[2017-06-29] MEDS: oxyCODONE 5mg IR tab ORAL PRN ×4 (00:06→20:25)
[2017-06-29 02:55] LABS: BASOPHILS % (AUTO) 0.6 % (0.0-2.0); EOSINOPHILS % (AUTO) 0.2 % (0.0-3.0); HEMATOCRIT 24.3 % (37.0-47.0); HEMOGLOBIN 8.3 G/DL (12.0-16.0); LYMPHOCYTES % (AUTO) 20.6 % (20.0-45.0); MEAN CORPUSCULAR VOLUME 87 FL (80-99); MONOCYTES % (AUTO) 9.6 % (1.0-10.0); NEUTROPHILS % (AUTO) 69.1 % (45.0-75.0); PLATELET COUNT 214 K/UL (150-450); RED BLOOD COUNT 2.78 M/UL (4.20-5.40); RED CELL DISTRIBUTION WIDTH 11.6 % (11.6-14.8); WHITE BLOOD COUNT 11.6 K/UL (4.8-10.8)
[2017-06-29 04:00] VITALS: BP 99/55
[2017-06-29] MEDS: MS Contin 15mg tab ORAL SCH ×3 (06:00→21:34)
[2017-06-29] MEDS: Dronabinol 2.5mg Cap ORAL SCH ×3 (06:23→22:00)
[2017-06-29] MEDS: D5 1/2NS 1,000 ML IV SCH (06:23)
[2017-06-29] MEDS: PCA shift volume MISC SCH ×2 (07:00→19:00)
[2017-06-29 07:25] LABS: ANION GAP 5 mmol/L (5-15); BLOOD UREA NITROGEN 5 mg/dL (7-18); CALCIUM 7.9 MG/DL (8.5-10.1); CARBON DIOXIDE 29 MMOL/L (21-32); CHLORIDE 105 MMOL/L (98-107); CREATININE 0.5 MG/DL (0.55-1.30); POTASSIUM 3.5 MMOL/L (3.5-5.1); SODIUM 139 MMOL/L (136-145)
[2017-06-29] MEDS: PCA Morphine 30mg/30ml IV SCH (07:41)
[2017-06-29 07:49] LABS: BASOPHILS % (AUTO) 0.7 % (0.0-2.0); EOSINOPHILS % (AUTO) 0.5 % (0.0-3.0); HEMATOCRIT 26.6 % (37.0-47.0); LYMPHOCYTES % (AUTO) 19.1 % (20.0-45.0); MEAN CORPUSCULAR VOLUME 88 FL (80-99); MONOCYTES % (AUTO) 11.1 % (1.0-10.0); NEUTROPHILS % (AUTO) 68.6 % (45.0-75.0); PLATELET COUNT 226 K/UL (150-450); RED BLOOD COUNT 3.01 M/UL (4.20-5.40); RED CELL DISTRIBUTION WIDTH 11.8 % (11.6-14.8); WHITE BLOOD COUNT 12.2 K/UL (4.8-10.8)
[2017-06-29 08:00] VITALS: BP 90/67
[2017-06-29] MEDS ORDERED: NS 500ML ONE (11:26)
[2017-06-29] MEDS ORDERED: D5 1/2NS 1000ml IV ONE (11:26)
[2017-06-29] MEDS: Sennosides 8.6mg ORAL SCH ×2 (11:42→18:25)
[2017-06-29] MEDS: Docusate 100mg/10ml Liq NG SCH ×2 (11:42→18:25)
[2017-06-29 12:00] VITALS: BP 109/83
[2017-06-29] MEDS ORDERED: Rate Change PCA 1 Each MISC PRN (12:00)
[2017-06-29] MEDS ORDERED: PCA Morphine 1mg/ml 30 ML IV SCH (12:00)
[2017-06-29] MEDS ORDERED: Naloxone 0.4mg/ml Inj IV PRN (12:00)
[2017-06-29] MEDS ORDERED: D5 1/2NS 1,000 ML IV SCH (12:00)
[2017-06-29 16:00] VITALS: BP 109/83
--- NOTE | 2017-06-29 18:17 | Cardiology Progress Note ---
Assessment/Plan Assessment/Plan 1. Tachycardia, probably sinus. 2. Postoperative lumbar spine surgery. 3. History of asthma. 4. Hyperlipidemia history. 5. Hypertension history. 6. hypotension 7. anemia ? dilutional vs others hr has improved still she look comfortable had faltus gettign clear feel sigificnatly beter d/w dr baeza several times last nite and this am repeat hgbin am pain management per dr farley gto 1 unti of prbc last nite due to drop in hgb , i persoanlly discused with her the risk of tansfusion she gave informed consent to me over the phone before trasfucion repat hgb has been stable improved she walking in manuel we had discussed wht dr Baeza and the final decision was she will not need any imaging at this time Subjective Cardiovascular: Denies: chest pain, lightheadedness, palpitations Respiratory: Denies: shortness of breath Gastrointestinal/Abdominal: Reports: abdominal pain - better , other - had faltus on several occasions Genitourinary: Denies: burning Subjective she feel muich better pain has improved no nausea takin in some clears now no bmbut had faltus Objective Last 24 Hour Vital Signs Date Time Temp Pulse Resp B/P (MAP) Pulse Ox O2 Delivery O2 Flow Rate FiO2 06/29/17 17:20 18 06/29/17 17:15 18 06/29/17 16:00 18 06/29/17 16:00 97.7 104 21 109/83 95 97.7 06/29/17 12:00 97.7 104 21 109/83 95 97.7 06/29/17 12:00 18 06/29/17 08:00 18 06/29/17 08:00 97.7 87 16 90/67 98 97.7 06/29/17 04:00 98.7 95 18 99/55 95 Room Air 98.7 06/29/17 04:00 18 06/29/17 00:00 99.0 112 20 114/72 96 Room Air 99.0 06/29/17 00:00 17 06/28/17 20:00 99.3 116 18 113/75 95 Room Air 99.3 06/28/17 20:00 17 General Appearance: no apparent distress, alert Neck: supple Cardiovascular: normal rate, regular rhythm Respiratory/Chest: lungs clear Abdomen: soft Extremities: non-tender, no swelling Intake and Output 06/28/17 06/29/17 19:00 07:00 Intake Total 1050 ml Output Total 3300 ml 1450 ml Balance -2250 ml -1450 ml IV Total 1050 ml Output Urine Total 3300 ml 1450 ml Laboratory Tests Test 06/28/17 21:15 06/29/17 02:30 06/29/17 06:30 White Blood Count 10.9 K/UL (4.8-10.8) H 11.6 K/UL (4.8-10.8) H 12.2 K/UL (4.8-10.8) H Red Blood Count 2.42 M/UL (4.20-5.40) L 2.78 M/UL (4.20-5.40) L 3.01 M/UL (4.20-5.40) L Hemoglobin 7.3 G/DL (12.0-16.0) L 8.3 G/DL (12.0-16.0) L 9.0 G/DL (12.0-16.0) L Hematocrit 21.2 % (37.0-47.0) L 24.3 % (37.0-47.0) L 26.6 % (37.0-47.0) L Mean Corpuscular Volume 87 FL (80-99) 87 FL (80-99) 88 FL (80-99) Mean Corpuscular Hemoglobin 30.3 PG (27.0-31.0) 30.0 PG (27.0-31.0) 29.9 PG (27.0-31.0) Mean Corpuscular Hemoglobin Concent 34.6 G/DL (32.0-36.0) 34.4 G/DL (32.0-36.0) 33.9 G/DL (32.0-36.0) Red Cell Distribution Width 11.2 % (11.6-14.8) L 11.6 % (11.6-14.8) 11.8 % (11.6-14.8) Platelet Count 225 K/UL (150-450) 214 K/UL (150-450) 226 K/UL (150-450) Mean Platelet Volume 6.9 FL (6.5-10.1) 7.2 FL (6.5-10.1) 7.3 FL (6.5-10.1) Neutrophils (%) (Auto) 67.7 % (45.0-75.0) 69.1 % (45.0-75.0) 68.6 % (45.0-75.0) Lymphocytes (%) (Auto) 22.0 % (20.0-45.0) 20.6 % (20.0-45.0) 19.1 % (20.0-45.0) L Monocytes (%) (Auto) 9.3 % (1.0-10.0) 9.6 % (1.0-10.0) 11.1 % (1.0-10.0) H Eosinophils (%) (Auto) 0.2 % (0.0-3.0) 0.2 % (0.0-3.0) 0.5 % (0.0-3.0) Basophils (%) (Auto) 0.9 % (0.0-2.0) 0.6 % (0.0-2.0) 0.7 % (0.0-2.0) Sodium Level 139 MMOL/L (136-145) Potassium Level 3.5 MMOL/L (3.5-5.1) Chloride Level 105 MMOL/L (98-107) Carbon Dioxide Level 29 MMOL/L (21-32) Anion Gap 5 mmol/L (5-15) Blood Urea Nitrogen 5 mg/dL (7-18) L Creatinine 0.5 MG/DL (0.55-1.30) L Estimat Glomerular Filtration Rate > 60 mL/min (>60) Glucose Level 121 MG/DL (74-106) H Calcium Level 7.9 MG/DL (8.5-10.1) L Microbiology Date/Time Source Procedure Growth Status 06/27/17 06:32 Nasal Nares MRSA Culture - Final NO METHICILLIN RESISTANT STAPH AUREUS... Complete JENNIFER DANIEL Jun 29, 2017 18:17
--- NOTE | 2017-06-29 19:15 | Progress Note ---
DATE: 06/29/2017 ACUTE PAIN MANAGEMENT PHYSICIAN PROGRESS NOTE MEDICATIONS: Medication administration record reviewed. Medications include Protonix, Chloraseptic, Phenergan, oxycodone, MS-Contin, Dilaudid ANALYTICAL LAB ANALYST, subcutaneous Dilaudid, Marinol, Benadryl, Soma, albuterol and Atrovent, Mylanta and Tylenol. LABORATORY STUDIES: Laboratory studies from yesterday morning, 06/29/2017 showed white count 12, hematocrit 27 and platelets 226. Sodium 139, potassium 3.5, chloride 105, bicarbonate 29, BUN 5, creatinine 0.5 and glucose 121. Calcium 7.9. Vital signs, afebrile, pulse 87, respirations 16, blood pressure 99/67 and oxygen saturation 98%. I spent over 60 minutes in consultation today. I saw the patient at bedside with the nurse RN, Jovi. The patient is accompanied at the bedside by her and 2 daughters. I also spoke with the physical therapist, Ang. The patient has been able to move in and out of bed with front-wheel walker. We will remove the Nieto catheter at this point. Since she is able to move out of bed. The patient continues to require multiple breakthrough doses of p.r.n. subcutaneous Dilaudid in combination with oxycodone and Soma. I will continue the rotate these doses around sequentially while continuing her scheduled MS-Contin and Marinol as well. She shows no signs for oversedation. The patient's hematocrit this morning is 27. Dr. Fernandez is following her postoperative blood-loss anemia issues closely. Incentive spirometer is at the bedside, which I encouraged aggressive usage since she continues to smoke. She will continue with her DVT prophylaxis as ordered earlier. I will leave a prescription for Soma and oxycodone instant release for outpatient usage. The patient did start to pass positive flatus. Dr. Hanks has permitted the patient to advance her diet. We will start her on clear liquids for lunch today and see how she tolerates such. Giovany Enciso M.D. DR: MICH JOB#: [id number] CC:
[2017-06-29 20:00] VITALS: BP 111/75
[2017-06-30] VITALS: BP 91/59
[2017-06-30] MEDS: oxyCODONE 5mg IR tab ORAL PRN ×3 (03:42→19:17)
[2017-06-30 04:00] VITALS: BP 102/69
[2017-06-30] MEDS: Dronabinol 2.5mg Cap ORAL SCH ×3 (06:24→23:22)
[2017-06-30] MEDS ORDERED: D5 1/2NS 1,000 ML IV SCH (07:00)
[2017-06-30] MEDS: PCA shift volume MISC SCH (07:27)
[2017-06-30 08:00] VITALS: BP 117/76
[2017-06-30] MEDS: Docusate 100mg/10ml Liq NG SCH ×2 (08:41→17:12)
[2017-06-30] MEDS: Sennosides 8.6mg ORAL SCH (08:41)
[2017-06-30] MEDS: MS Contin 15mg tab ORAL SCH ×2 (09:00→21:00)
--- NOTE | 2017-06-30 10:15 | Progress Note ---
DATE: 06/30/2017 ACUTE PAIN MANAGEMENT PHYSICIAN PROGRESS NOTE MEDICATIONS: Medication administration record reviewed. Medications include Senokot, Phenergan, Chloraseptic, Protonix, oxycodone, Narcan, MS Contin, morphine CALENDERING SUPERVISOR, Dilaudid, Marinol, Colace, Benadryl, Soma, albuterol, Atrovent, Mylanta, and Tylenol. LABORATORY STUDIES: From yesterday, 06/29/2017 shows white count 12, hematocrit 27, platelets 226,000. Sodium 139, potassium 3.5, chloride 105, bicarbonate 29, BUN 5, creatinine 0.5, glucose 121, calcium 7.9. Vital signs, from this morning are within normal limits. Afebrile, pulse 99, respirations 18, blood pressure 102/69, oxygen saturation 98% on room air. I spent over 60 minutes in consultation today. I saw the patient at bedside with the charge nurse, Chyna DE LEON. The patient is breathing comfortably, she is on room air. I spoke with the hospital pharmacist and I have decided to discontinue the CALENDERING SUPERVISOR morphine at this time. I will also Hep-Lock her IV fluids since she is tolerating a full liquid diet without problems. She can orally keep herself hydrated. By discontinuing the intravenous fluids, she will have less lines holding her in bed. This will encourage increase in movement in and out of bed, and ambulation. A front wheel walker remains at the bedside to encourage walking. She is passing positive flatus. She still has mild abdominal bloating. Hopefully, with increased ambulation and further flatus, her abdominal discomfort will improve. She continues to show no signs of oversedation despite the high doses of MS Contin, Marinol, oxycodone, Dilaudid, and Soma, which she continues to use quite frequently. I did leave a prescription for 60 tablets of oxycodone instant release 30 mg dosing for outpatient usage. Also, I have left a prescription for Soma for outpatient usage. The patient has MS Contin already at home and we will obtain further refills from her outpatient [facility] physician. With her chronic opioid usage, she does have chronic constipation. Dr. Fernandez has suggested not to use aggressive laxatives unless necessary by tomorrow. Today, I have placed her on Colace and Senokot b.i.d. We will see how her bowel function resumed as she advances to regular diet today. bowel movement. surgeon, Dr. Hanks would recommend the patient to discharge home at that time. Giovany Enciso M.D. DR: Ibrahima JOB#: [id number] CC:
[2017-06-30 12:00] VITALS: BP 104/61
[2017-06-30] MEDS ORDERED: Magnesium Citrate Liq Btl ORAL ONE ×2 (13:00→23:00)
--- NOTE | 2017-06-30 14:12 | Cardiology Progress Note ---
Assessment/Plan Assessment/Plan 1. Tachycardia, probably sinus. 2. Postoperative lumbar spine surgery. 3. History of asthma. 4. Hyperlipidemia history. 5. Hypertension history. 6. hypotension 7. anemia ? dilutional vs others hr has improved still she look comfortable repeat cbc pending bp is fien hr is ok Subjective Subjective she feel muich better pain has improved no nausea takin in some clears now no bmbut had faltus Objective Last 24 Hour Vital Signs Date Time Temp Pulse Resp B/P (MAP) Pulse Ox O2 Delivery O2 Flow Rate FiO2 06/30/17 12:00 99.6 102 20 104/61 98 Room Air 99.6 06/30/17 10:57 98.7 06/30/17 08:30 18 06/30/17 08:00 98.7 106 20 117/76 99 Room Air 98.7 06/30/17 04:00 98.7 99 18 102/69 98 Room Air 98.7 06/30/17 04:00 18 06/30/17 00:00 20 06/30/17 00:00 98.6 88 19 91/59 98 Room Air 98.6 06/29/17 20:00 19 06/29/17 20:00 98.6 102 20 111/75 95 Room Air 98.6 06/29/17 17:20 18 06/29/17 17:15 18 06/29/17 16:00 18 06/29/17 16:00 97.7 104 21 109/83 95 97.7 Intake and Output 06/29/17 06/30/17 19:00 07:00 Intake Total 1550 ml 1300 ml Output Total 350 ml Balance 1200 ml 1300 ml Intake Oral 550 ml 800 ml IV Total 1000 ml 500 ml Output Urine Total 350 ml # Voids 2 5 JENNIFER DANIEL Jun 30, 2017 14:12
[2017-06-30 16:00] VITALS: BP 128/80
[2017-06-30] MEDS ORDERED: Magnesium Citrate Liq Btl ORAL PRN (17:30)
[2017-06-30 18:49] LABS: BASOPHILS % (AUTO) 0.6 % (0.0-2.0); HEMATOCRIT 27.7 % (37.0-47.0); HEMOGLOBIN 9.4 G/DL (12.0-16.0); LYMPHOCYTES % (AUTO) 23.4 % (20.0-45.0); MEAN CORPUSCULAR VOLUME 88 FL (80-99); MONOCYTES % (AUTO) 8.6 % (1.0-10.0); NEUTROPHILS % (AUTO) 65.5 % (45.0-75.0); PLATELET COUNT 315 K/UL (150-450); RED BLOOD COUNT 3.14 M/UL (4.20-5.40); RED CELL DISTRIBUTION WIDTH 11.5 % (11.6-14.8); WHITE BLOOD COUNT 12.7 K/UL (4.8-10.8)
[2017-06-30 20:00] VITALS: BP 110/61
[2017-07-01] VITALS: BP 99/58
[2017-07-01] MEDS ORDERED: Magnesium Citrate Liq Btl ONE (01:14)
[2017-07-01 04:00] VITALS: BP 130/68
[2017-07-01] MEDS: oxyCODONE 5mg IR tab ORAL PRN (05:09)
[2017-07-01] MEDS ORDERED: Magnesium Citrate Liq Btl ORAL PRN (05:30)
[2017-07-01] MEDS: Dronabinol 2.5mg Cap ORAL SCH (06:18)
[2017-07-01 07:31] LABS: BASOPHILS % (AUTO) 0.6 % (0.0-2.0); EOSINOPHILS % (AUTO) 4.4 % (0.0-3.0); HEMATOCRIT 24.2 % (37.0-47.0); HEMOGLOBIN 8.6 G/DL (12.0-16.0); LYMPHOCYTES % (AUTO) 20.8 % (20.0-45.0); MEAN CORPUSCULAR VOLUME 88 FL (80-99); MONOCYTES % (AUTO) 8.2 % (1.0-10.0); NEUTROPHILS % (AUTO) 66.1 % (45.0-75.0); PLATELET COUNT 281 K/UL (150-450); RED BLOOD COUNT 2.77 M/UL (4.20-5.40); RED CELL DISTRIBUTION WIDTH 11.4 % (11.6-14.8); WHITE BLOOD COUNT 8.5 K/UL (4.8-10.8)
[2017-07-01 08:00] VITALS: BP 129/79
[2017-07-01] MEDS: Docusate 100mg/10ml Liq NG SCH (09:00)
[2017-07-01] MEDS ORDERED: OXYCODONE HCL5 MG ORAL (09:05)
[2017-07-01] MEDS ORDERED: SOMA350 MG PO (09:08)
[2017-07-01] MEDS: MS Contin 15mg tab ORAL SCH (09:27)
--- NOTE | 2017-07-01 10:45 | Cardiology Progress Note ---
Assessment/Plan Assessment/Plan 1. Tachycardia, probably sinus. 2. Postoperative lumbar spine surgery. 3. History of asthma. 4. Hyperlipidemia history. 5. Hypertension history. 6. hypotension 7. anemia ? dilutional vs others hr is ok bp is perfect she look comfortable repeat cbc yest hgb up more today hgb down a little likley fluctuation in labs Subjective Cardiovascular: Denies: chest pain, lightheadedness, palpitations Respiratory: Denies: SOB with excertion Gastrointestinal/Abdominal: Reports: abdominal pain, other - had bm Genitourinary: Denies: burning Subjective she feel muich better pain has improved no nausea, walking in halls now dr baeza discharged her already Objective Last 24 Hour Vital Signs Date Time Temp Pulse Resp B/P (MAP) Pulse Ox O2 Delivery O2 Flow Rate FiO2 07/01/17 10:25 99.5 99.5 07/01/17 09:25 110 20 Room Air 21 07/01/17 08:50 99.7 99.7 07/01/17 08:00 97.9 110 18 129/79 97 97.9 07/01/17 07:30 97 Room Air 07/01/17 04:00 98.8 98 19 130/68 97 Room Air 98.8 07/01/17 00:00 98.3 87 18 99/58 97 Room Air 98.3 06/30/17 20:00 98.9 102 18 110/61 97 Room Air 98.9 06/30/17 16:00 99.1 104 20 128/80 96 Room Air 99.1 06/30/17 12:00 99.6 102 20 104/61 98 Room Air 99.6 06/30/17 10:57 98.7 General Appearance: alert, other - walkign in halls with PT Neck: supple Cardiovascular: normal rate Respiratory/Chest: lungs clear, normal breath sounds Abdomen: normal bowel sounds, soft Extremities: no swelling Intake and Output 06/30/17 07/01/17 19:00 07:00 Intake Total 800 ml 660 ml Output Total 0 ml Balance 800 ml 660 ml Intake Oral 660 ml Other 800 ml Stool Total 0 ml # Voids 6 3 Laboratory Tests Test 06/30/17 18:30 07/01/17 06:10 White Blood Count 12.7 K/UL (4.8-10.8) H 8.5 K/UL (4.8-10.8) Red Blood Count 3.14 M/UL (4.20-5.40) L 2.77 M/UL (4.20-5.40) L Hemoglobin 9.4 G/DL (12.0-16.0) L 8.6 G/DL (12.0-16.0) L Hematocrit 27.7 % (37.0-47.0) L 24.2 % (37.0-47.0) L Mean Corpuscular Volume 88 FL (80-99) 88 FL (80-99) Mean Corpuscular Hemoglobin 29.9 PG (27.0-31.0) 31.2 PG (27.0-31.0) H Mean Corpuscular Hemoglobin Concent 33.9 G/DL (32.0-36.0) 35.6 G/DL (32.0-36.0) Red Cell Distribution Width 11.5 % (11.6-14.8) L 11.4 % (11.6-14.8) L Platelet Count 315 K/UL (150-450) 281 K/UL (150-450) Mean Platelet Volume 7.4 FL (6.5-10.1) 7.3 FL (6.5-10.1) Neutrophils (%) (Auto) 65.5 % (45.0-75.0) 66.1 % (45.0-75.0) Lymphocytes (%) (Auto) 23.4 % (20.0-45.0) 20.8 % (20.0-45.0) Monocytes (%) (Auto) 8.6 % (1.0-10.0) 8.2 % (1.0-10.0) Eosinophils (%) (Auto) 2.0 % (0.0-3.0) 4.4 % (0.0-3.0) H Basophils (%) (Auto) 0.6 % (0.0-2.0) 0.6 % (0.0-2.0) JENNIFER DANIEL Jul 01, 2017 10:45
--- NOTE | 2017-07-01 11:15 | Progress Note ---
DATE: 07/01/2017 ACUTE PAIN MANAGEMENT PHYSICIAN PROGRESS NOTE MEDICATIONS: Medication administration record reviewed. Medications include Colace, Protonix, MS Contin, and Marinol. P.r.n. medications include Mylanta, oxycodone, Zofran, Soma, Benadryl, albuterol, Chloraseptic spray, Tylenol, Narcan, and Dilaudid. LABORATORY STUDIES: From this morning shows normal white count of 9, hematocrit 24, hemoglobin 8.6, and platelets 281. OBJECTIVE: VITAL SIGNS: Afebrile, pulse 98, respirations 19, blood pressure 130/68, and oxygen saturation 97% on room air. I spent over 60 minutes in consultation today. I saw the patient at the bedside with the nurse RN, Martha. I discussed the case with the charge nurse, RN, Carlos, and the hospital pharmacist, Maddison. The patient has been increasing her ambulation. She walks greater than 100 feet. Her is at the bedside with her, providing good social support and assisting with activities of daily living. A front wheel walker also remains at the bedside to help with ambulation. The patient has two doses of magnesium citrate over the past 24 hours. She is yet did have a bowel movement. Her abdominal bloating continues to decrease serially daily. She continues to pass significant flatus. With her high doses of opioid narcotics, it is not surprising for her to have persistent opioid-induced constipation. Dr. Fernandez is following the patient closely for her constipation as well as for her postoperative blood loss anemia. Repeat CBC this morning showed a relatively stable hematocrit of 24 down from 28 yesterday, but 27 the day before and 24 the day previously. The patient denies any shortness of breath or chest pain with her current hemoglobin of 8.6. Her blood pressure is quite stable at 130/68 and her pulse is less than 100. The patient continues to request breakthrough doses of pain medication in combination with the scheduled doses of Marinol and MS Contin. She shows no signs of oversedation. The request for p.r.n. Dilaudid and oxycodone have decreased somewhat. She has a good supply of narcotics already at home from her outpatient doctors as well on the prescription I left her oxycodone and Soma. Dr. Hanks, Surgery, prefers the patient to have a bowel movement prior to discharge. I will defer the patient's anemia and other medical issues including constipation to Dr. Fernandez, who is following the patient closely. Giovany Enciso M.D. DR: GIL JOB#: [id number] CC:
[2017-07-01 12:00] VITALS: BP 128/91
--- NOTE | 2017-07-03 17:03 | Discharge Summary ---
Discharge Summary Hospital Course Date of Admission Jun 27, 2017 at 05:37 Date of Discharge Jul 01, 2017 at 12:45 Admitting Diagnosis HPI Martha Lui is a 56 year old female who was admitted on Jun 27, 2017 at 05:37 for Lumbar Instability Hospital Course [id number] Discharge Discharge Disposition Patient was discharged to Home (01) Adry Douglass NP Jul 03, 2017 17:03
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
== END 2017-07-01 12:45 | disposition home or self-care (01) | DRG 460 ==
LOC: SDSOVERFLO 05:37 → 3E 16:20
PROC: 3E0U0GB Introduction of Recombinant Bone Morphogenetic Protein into Joints, Open Approach (ICD-10-PCS; principal; 2017-06-27 07:00)
PROC: 0SG30A0 Fusion of Lumbosacral Joint with Interbody Fusion Device, Anterior Approach, Anterior Column, Open Approach (ICD-10-PCS; principal; 2017-06-27 07:00)
PROC: 0SP304Z Removal of Internal Fixation Device from Lumbosacral Joint, Open Approach (ICD-10-PCS; principal; 2017-06-27 07:00)
PROC: 30233N1 Transfusion of Nonautologous Red Blood Cells into Peripheral Vein, Percutaneous Approach (ICD-10-PCS; 2017-06-28)
DX: M51.37 Other intervertebral disc degeneration, lumbosacral region (principal); F11.20 Opioid dependence, uncomplicated; M43.17 Spondylolisthesis, lumbosacral region; I10 Essential (primary) hypertension; E78.5 Hyperlipidemia, unspecified; J45.909 Unspecified asthma, uncomplicated; R00.0 Tachycardia, unspecified; G89.18 Other acute postprocedural pain; T40.2X5A Adverse effect of other opioids, initial encounter; Y92.9 Unspecified place or not applicable; D50.0 Iron deficiency anemia secondary to blood loss (chronic); K59.03 Drug induced constipation
CPT/HCPCS: 36415; 72020; 76001; 80048; 80053; 85025; 86850; 86900; 86901; 86920; 87081; 93005; 93970; 94003; 94150; 94640; 94664; 94760; J2250; J2405; J7620